=== PATIENT | male | born 1960 | race Caucasian/White ===

== ENCOUNTER 2019-10-31 16:55 | Outpatient (CLI) | payer BC, SELFPAY ==
--- NOTE | ~2019-10-31 | XR_ITS ---
EXAMINATION: XR abdomen/kub 1V EXAM DATE: 10/31/2019 17:27 INDICATION: Right ureteral stone. TECHNIQUE: Frontal projection(s) of the abdomen for interpretation. Comparison is made to prior exami nation from 10/14/2019. FINDINGS: Previously seen right proximal ureteral stone no longer identified. No suspicious soft tis gaviota calcifications identified. Small amount of colonic stool. No obstruction. There is moderate symme tric bilateral hip primary osteoarthritis. There is no organomegaly. IMPRESSION: Unremarkable XR abdomen/kub 1V exam. Reviewed, dictated and finalized at location A. [employer]AF[employer] ADMINISTRATOR
== END 2019-10-31 16:56 | disposition home or self-care (01) ==
LOC: ANHIMG 16:59
PROVIDERS: PCP Family Medicine; Visit Provider Nurse Practitioner Adult Health
DX: N20.1 Calculus of ureter (principal)
CPT/HCPCS: 74018

== ENCOUNTER 2024-04-19 01:51 | Day surgery (SDC) | payer BC, SELFPAY ==
[2024-04-06 08:56] VITALS: BMI 40.2
[2024-04-19 07:10] VITALS: BP 148/54; PULSE 65; RESP 18; TEMP 36.1; O2SAT 97
[2024-04-19] MEDS: LACTATED RINGERS 1,000 ML 150 ML IV CONT (07:17)
--- NOTE | 2024-04-19 07:31 | P.PNAN_ITS ---
Anes - Eval Pre Procedure Procedure: Operation Date: 04/19/24 08:30 Proposed Procedures p Screening Colonoscopy - Michael Green MD Date/Time: 04/19/24 07:31 Pre Op Diagnosis: Neoplasm Screening Patient Data Age: 64 Gender: M Height: 1.85 m Weight: 135.3 kg Last Vital Signs Temp 36.1 C L 04/19/24 07:10 Pulse 65 04/19/24 07:10 Resp 18 04/19/24 07:10 BP 148/54 H 04/19/24 07:10 Pulse Ox 97 04/19/24 07:10 O2 Del Method Room Air 04/19/24 07:10 Allergies Allergy/AdvReac Type Severity Reaction Status Date / Time No Known Allergies Allergy Verified 04/19/24 07:09 Home Medications Medication Instructions Recorded Confirmed Type acidophilus 100 million 1 cap PO Q48H 10/07/19 04/06/24 History cell-pectin, citrus 10 mg capsule (Acidophilus Probiotic) fluticasone propionate 50 2 spray intranasal DIRECTED PRN 10/07/19 04/06/24 History mcg/actuation nasal Allergic Symptoms spray,suspension metoprolol succinate 50 mg 50 mg PO DAILY 10/07/19 04/19/24 History tablet,extended release 24 hr sumatriptan succinate 100 mg tablet 100 mg PO DIRECTED PRN Migraine 10/07/19 04/06/24 History Headache famotidine 20 mg tablet 20 mg PO DAILY 04/06/24 04/06/24 History loratadine 10 mg tablet (Claritin) 10 mg PO DAILY 04/06/24 04/06/24 History Patient hx anesthesia problems: none Family hx anesthesia problems: other (slow to wake) Results Review: All pre-operative results and documents have been reviewed as part of the pre- operative evaluation. [facility] Past Medical History Medical History (Updated 10/14/19 @ 07:08 by Boy Trujillo, ) HTN (hypertension) Kidney stones, calcium oxalate Migraine Morbid obesity with BMI of 40.0-44.9, adult Social History Social History Smoking status: Former smoker Tobacco type: cigarettes Substance use type: does not use Living arrangements: with family Spiritual care concerns: No Exam Day of Procedure 04/19/24 07:31 Patient weight: obese Heart: regular rate and rhythm Lungs: clear to auscultation Airway: Mallampati scale class II Neurological: alert and oriented Other findings: slow to wake
--- NOTE | 2024-04-19 08:12 | PM.HPGS ---
History of Present Illness History of Present Illness Consent: Risks, benefits, and alternatives have been discussed and questions answered. Patient agrees to proceed with procedure. Chief complaint: Neoplasm Screening Narrative: Edenilson Villanueva is a 64 year old male with previous history of polyp, last colonoscopy 8 years ago Review of Systems Review of Systems: All systems reviewed & are unremarkable except as noted in HPI and below PMFSH Past Medical History Medical History (Updated 04/19/24 @ 08:12 by Michael Green MD) Colon cancer screening HTN (hypertension) Kidney stones, calcium oxalate Migraine Morbid obesity with BMI of 40.0-44.9, adult Social History Social History Smoking status: Former smoker Tobacco type: cigarettes Substance use type: does not use Living arrangements: with family Spiritual care concerns: No Meds Home Medications and Allergies Home Medications Medication Instructions Recorded Confirmed Type acidophilus 100 million 1 cap PO Q48H 10/07/19 04/06/24 History cell-pectin, citrus 10 mg capsule (Acidophilus Probiotic) fluticasone propionate 50 2 spray intranasal DIRECTED PRN 10/07/19 04/06/24 History mcg/actuation nasal Allergic Symptoms spray,suspension metoprolol succinate 50 mg 50 mg PO DAILY 10/07/19 04/19/24 History tablet,extended release 24 hr sumatriptan succinate 100 mg tablet 100 mg PO DIRECTED PRN Migraine 10/07/19 04/06/24 History Headache famotidine 20 mg tablet 20 mg PO DAILY 04/06/24 04/06/24 History loratadine 10 mg tablet (Claritin) 10 mg PO DAILY 04/06/24 04/06/24 History Allergies Allergy/AdvReac Type Severity Reaction Status Date / Time No Known Allergies Allergy Verified 04/19/24 07:09 Vital Signs Vital Signs - 24 hr 04/19/24 07:10 Temperature 97 F L Pulse Rate 65 Respiratory Rate 18 Blood Pressure 148/54 H Pulse Oximetry 97 Oxygen Delivery Room Air Exam Const: General: comfortable and no acute distress HENMT: Face/Nose/Sinus: Normal nares present Eyes: General: appearance normal, both eyes and all related structures Neck: Neck: no JVD Resp: Auscultation: clear to auscultation bilaterally Cardio: Rate: regular rate Rhythm: regular rhythm GI: Inspection: non-distended GI Palp: Yes Soft to palpation Skin: General skin exam: normal color Neuro: General: gait normal Speech: normal speech Extrem: General: normal to inspection Psych: Mental Status: mental status grossly normal Assessment and Plan Assessment and plan (1) Colon cancer screening: Code(s): Z12.11 - Encounter for screening for malignant neoplasm of colon Status: Acute Assessment and Plan: colonoscopy
[2024-04-19 08:34] VITALS: BP 115/72; PULSE 67; RESP 20; O2SAT 95
[2024-04-19 08:44] VITALS: BP 115/80; PULSE 67; RESP 17; O2SAT 97
[2024-04-19 08:54] VITALS: BP 132/87; PULSE 60; RESP 17; O2SAT 97
--- NOTE | 2024-04-19 09:04 | P.PNAN_ITS ---
Anes - Eval Final PreProcedure Day of Procedure 04/19/24 09:04 ASA classification: III Emergent: no Anesthetic plan: proceed Anesthesia type and monitoring: general and standard monitoring Results Review: All pre-operative results and documents have been reviewed as part of the pre- operative evaluation. Informed Consent: The patient's anesthetic plan and its attendant risks and benefits were discussed with the patient/family/POA. Questions were solicited and answers provided to the satisfaction of the patient/family/POA.
== END 2024-04-19 09:01 | disposition home or self-care (01) ==
PROVIDERS: PCP Family Medicine; Visit Provider Internal Medicine Gastroenterology
PROC: 0DJD8ZZ Inspection of Lower Intestinal Tract, Via Natural or Artificial Opening Endoscopic (ICD-10-PCS; CPT 45378; principal; 2024-04-19 08:30)
DX: Z12.11 Encounter for screening for malignant neoplasm of colon (principal); D12.3 Benign neoplasm of transverse colon; K63.5 Polyp of colon; K57.30 Diverticulosis of large intestine without perforation or abscess without bleeding; K64.8 Other hemorrhoids; I10 Essential (primary) hypertension; Z87.891 Personal history of nicotine dependence; E66.9 Obesity, unspecified; Z68.39 Body mass index [BMI] 39.0-39.9, adult
CPT/HCPCS: 45385; 88305; J2704; J7120